=== PATIENT | male | born 1975 | race African-American/Black ===

== ENCOUNTER 2018-12-03 07:53 | Emergency (ER) | payer OTHER, SELFPAY ==
[2018-12-03] VITALS (8 sets, daily range): BP systolic 114–148; BP diastolic 73–90; PULSE 65–87; RESP 13–24; TEMP 37.3; O2SAT 94–99; BMI 28.4
--- NOTE | 2018-12-03 08:02 | DI.RAD.S_ITS ---
PROCEDURE: XR CHEST 2V INDICATIONS: Right arm pain, vision change TECHNIQUE: 2 views of the chest were acquired. COMPARISON: None. FINDINGS: Surgical changes and devices: None. Lungs and pleura: No pleural effusions or pneumothorax. Lungs are clear. Mediastinum: Mediastinal contours are normal. Heart size is normal. Bones and chest wall: No suspicious bony abnormalities. Soft tissues appear unremarkable. IMPRESSION: Chest without acute cardiopulmonary abnormalities. Dictated by: Neil Velez M.D. on 12/03/2018 at 9:17 Approved by: Neil Velez M.D. on 12/03/2018 at 9:18
--- NOTE | 2018-12-03 08:02 | DI.CT.S_ITS ---
PROCEDURE: CT HEAD/BRAIN WO CON INDICATIONS: vision change, brief TECHNIQUE: Noncontrast 4.5 mm thick angled axial sections acquired from the foramen magnum to the vertex, with coronal and sagittal reformats. For radiation dose reduction, the following was used: automated exposure control, adjustment of mA and/or kV according to patient size. COMPARISON: None. FINDINGS: Image quality: Excellent. CSF spaces: Basal cisterns are patent. No extra-axial fluid collections. Ventricles are normal in size and shape. Brain: No midline shift. No intracranial masses or hemorrhage. Acevedo-white matter interface is normal. Skull and face: Calvarium and visualized facial bones are intact, without suspicious lesions. Sinuses: Visualized sinuses and mastoids are clear. IMPRESSION: No acute intracranial process. Findings were personally telephoned to Dr. Diaz in the emergency department 12/03/18 0830 hours Dictated by: George Fernandes M.D. on 12/03/2018 at 8:28 Approved by: George Fernandes M.D. on 12/03/2018 at 8:31
--- NOTE | 2018-12-03 08:19 | ED.NEUROSD ---
HPI - Neuro Symptoms/Deficit General Chief Complaint: Neuro Symptoms/Deficit Stated Complaint: Rt arm pain/Vision loss Time Seen by Provider: 12/03/18 07:55 Source: patient Mode of arrival: ambulatory Limitations: no limitations History of Present Illness HPI Narrative: 43M nonsmoker, with history of bipolar presents by EMS for evaluation of a brief episode of left eye vision change this morning in the absence of pain or injury as well as few days of episodes of right arm pain. He denies any injury or overuse of his right upper extremity. He denies numbness, tingling or weakness. He denies history of the same. She denies chest pain or shortness of breath. He denies any current symptoms. He called the nursing hotline and was instructed to present to the emergency department. Onset (ago): hour(s) History of same: No Severity: mild Relieving factors: none Exacerbating factors: none Context: sudden onset On Anticoagulants: No Associated symptoms: denies other symptoms Treatments Prior to Arrival: none Related Data Home Medications Medication Instructions Recorded Confirmed Vitamin D3 1 cap PO DAILY 12/03/18 12/03/18 amlodipine 10 mg PO DAILY 12/03/18 12/03/18 divalproex 1,000 mg PO QPM 12/03/18 12/03/18 fluticasone 1 spray INTRANASAL DAILY PRN 12/03/18 12/03/18 fluticasone-salmeterol [Advair 1 inh INHALATION Q12H 12/03/18 12/03/18 Diskus] Allergies Allergy/AdvReac Type Severity Reaction Status Date / Time No Known Drug Allergies Allergy Verified 12/03/18 08:40 Review of Systems Constitutional Denies chills, Denies fever(s), Denies lethargy and Denies weakness Eyes Denies change in vision, Denies eye discharge, Denies irritation and Reports loss of vision ENT Ears, Nose, Mouth, and Throat: Denies change in voice, Denies neck pain and Denies sore throat Cardiovascular Denies chest pain, Denies irregular heart rhythm, Denies lightheadedness, Denies palpitations, Denies dyspnea, Denies dyspnea on exertion and Denies orthopnea Respiratory Denies cough, Denies dyspnea, Denies dyspnea on exertion and Denies wheezing Gastrointestinal Gastrointestinal: Denies abdominal pain, Denies change in bowel habits, Denies diarrhea, Denies nausea and Denies vomiting Genitourinary Denies hematuria, Denies flank pain, Denies urinary incontinence and Denies urinary urgency Musculoskeletal Denies neck pain and Reports radiating pain into limb Integumentary/Breasts Denies pruritus, Denies erythema, Denies rash and Denies wounds Neurologic Denies confusion, Reports loss of vision and Denies weakness Psychiatric Denies anxiety, Denies confusion, Denies depression, Denies homicidal ideation and Denies suicidal ideation Endocrine Denies palpitations Hematologic/Lymphatic Denies easy bruising Allergic/Immunologic Denies wheezing PFSH Medical History Bipolar disorder (Acute) Social History Smoking Status: Never smoker Exam Narrative Exam Narrative: GENERAL: This is a well-nourished, well-developed patient, in mild distress. HEAD: Atraumatic. Normocephalic. No temporal or scalp tenderness. EYES: Pupils equal round and reactive. Extraocular motions intact. No scleral icterus. No injection or drainage. ENT: Nose without bleeding, purulent drainage or septal hematoma. Throat without erythema, tonsillar hypertrophy or exudate. Uvula midline. Airway patent. NECK: Trachea midline. No JVD or lymphadenopathy. Supple, nontender, no meningeal signs. CARDIOVASCULAR: Regular rate and rhythm without murmurs, gallops, or rubs. RESPIRATORY: Clear to auscultation. Breath sounds equal bilaterally. No wheezes, rales, or rhonchi. GASTROINTESTINAL: Abdomen soft, non-tender, nondistended. No hepato-splenomegaly, or palpable masses. No guarding. EXTREMITIES: No clubbing, cyanosis, or edema. No joint tenderness, effusion, or edema noted. BACK: Nontender without deformity or crepitance. No flank tenderness. NEURO: AOx3. SKIN: No rash or erythema. NIH Stroke Scale 1a. LOC: Patient is alert and keenly responsive (0) 1b. LOC Questions: Patient answers both LOC questions accurately (0) 1c. LOC Commands: Patient performs both tasks correctly (0) 2. Best Gaze: Normal (0) 3. Visual: No visual loss (0) 4. Facial palsy: Normal symmetrical movements (0) 5. Motor arm: No drift (0) 6. Motor leg: No drift (0) 7. Limb ataxia: Absent (0) 8. Sensory: Normal (0) 9. Best language: No aphasia; normal (0) 10. Dysarthria: Normal (0) 11. Extinction and inattention: No abnormality (0) NIHSS: 0 Initial Vital Signs Initial Vital Signs: Vital Signs Temperature 99.1 F 12/03/18 07:21 Pulse Rate 71 12/03/18 07:21 Respiratory Rate 16 12/03/18 07:21 Blood Pressure 132/90 12/03/18 07:21 Pulse Oximetry 97 12/03/18 07:21 Course Orders Ordered: ED Orders 12/03/18 11:25 Basic Metabolic Panel Stat Complete Blood Count AUTO DIFF Stat Partial Thromboplastin Time Stat Prothrombin Time INR Stat Troponin I Stat Discontinued Medications Sodium Chloride (Normal Saline 0.9%) 1,000 mls @ 150 mls/hr IV CONT AYAN Last Infusion: 12/03/18 13:13 Dose: 0 mls/hr Admin: 12/03/18 08:40 Dose: 150 mls/hr Vital Signs - 8 hr 12/03/18 11:34 12/03/18 12:03 12/03/18 12:30 Pulse Rate 72 80 65 Respiratory Rate 18 24 13 Blood Pressure Blood Pressure [Right Arm] 122/86 114/79 119/89 Pulse Oximetry 96 98 98 12/03/18 13:13 Pulse Rate 77 Respiratory Rate 15 Blood Pressure 114/73 Blood Pressure [Right Arm] Pulse Oximetry 97 MDM - Neuro Symptoms/Deficit Medical Records Attestation: I reviewed the patient's medical records. Lab Data Attestation: I reviewed the patient's lab results. Result diagrams: 12/03/18 11:25 12/03/18 11:25 Lab Results 12/03/18 12/03/18 12/03/18 Range/Units 11:25 11:25 11:25 WBC 6.3 (4.5-11.0) X10^3/uL RBC 5.43 (4.5-5.9) X10^6/uL Hgb 13.0 L (13.5-17.5) g/dL Hct 41.2 (41-53) % MCV 75.9 L (80-100) fL MCH 24.0 L (26-34) PG MCHC 31.6 (30-36) % RDW 14.7 (11.6-14.8) % Plt Count 201 (150-400) X10^3/uL Neut % (Auto) 40.6 L (50-75) % Lymph % (Auto) 50.1 H (25-40) % Bonner % (Auto) 8.2 (3-14) % Eos % (Auto) 0.9 L (2-4) % Baso % (Auto) 0.2 (0-2) % Neut # (Auto) 2600 (0429-8985) /uL Lymph # (Auto) 3100 (5659-9712) /uL Bonner # (Auto) 500 (0-900) /uL Eos # (Auto) 100 (0-450) /uL Baso # (Auto) 0 (0-100) /uL PT 11.4 (10.1-12.7) SECONDS INR 1.0 (0.9-1.3) APTT 29 (26.4-36.2) SECONDS Sodium 141 (137-145) mmol/L Potassium 4.1 (3.4-5.1) mmol/L Chloride 107 (98-107) mmol/L Carbon Dioxide 25 (22-32) mmol/L BUN 15 (9-20) mg/dL Creatinine 1.00 (0.66-1.25) mg/dL Estimated GFR > 60.0 (>60) mL/min BUN/Creatinine Ratio 15.0 (6-22) Glucose 81 (70-100) mg/dL Calcium 9.0 (8.4-10.2) mg/dL Troponin I < 0.012 (0.01-0.034) ng/mL Point of Care Testing Glucose POC 112 Urine Dip Bedside Urine Glucose Negative Bedside Urine Bilirubin - Negative Bedside Urine Ketone - Negative Urine Specific [place] 1.030 Bedside Urine Occult Blood - Negative Bedside Urine pH 5.0 Bedside Urine Protein - Negative Bedside Urine Urobilinogen - Negative Bedside Urine Nitrite - Negative Bedside Urine Leukocytes - Negative Esterase Imaging Data MRI - head: Radiologist's impression: Patient: Reji Hraris MR#: [id number] : 1975 Acct:[id number] Age/Sex: 43 / M Date of Service: 12/03/18 Loc: ED Accession Number: [id number] Procedure: MR stroke Ordering Provider: Quinton Diaz D.O. PROCEDURE: MR STROKE Pre- and post-contrast brain MRI, non-contrast brain MR angiogram, pre- and postcontrast neck MR angiogram INDICATIONS: vision change, arm trouble TECHNIQUE: Brain: Noncontrast axial T1 spin echo, axial T2 fast spin echo, sagittal and axial FLAIR, coronal T2 fast spin echo, axial gradient echo, axial diffusion and ADC through the brain. After the administration of contrast, axial 3D VIBE of the cranial vasculature and brain. Brain MRA: Non-contrast 3-D time of flight MR angiogram, with multiple zuikmvz-eihtdrsyb-klilkhqndy (MIP) reformats performed. Neck MRA: Axial and sagittal TruFISP through the neck. Coronal dynamic MR angiogram during administration of contrast in the arterial and venous phases, with 3-dimenstional bmkrugc-jioflwjsb-sosqjpbbpy (MIP) reformats constructed from subtraction images. COMPARISON: None. FINDINGS: Image quality: Excellent. BRAIN: CSF spaces: Ventricles are normal in size and shape. Basal cisterns are patent. No extra-axial fluid collections. Brain: No intracranial bleeds or mass effects. Acevedo-white matter interface is normal. Diffusion weighted images show no acute ischemic insults. Brainstem appears normal. Normal intravascular flow voids are present. No Chiari weighted abnormalities identified in the brain parenchyma. No abnormal intracranial enhancement. Skull and face: Calvarial marrow signal is normal. Orbits appear normal. Sinuses: Sinuses and mastoids are clear. BRAIN MR ANGIOGRAM: Anterior circulation: Intracranial internal carotid arteries are normal in size and enhancement. The flow within the paired anterior cerebral arteries is normal and symmetric. The flow within the middle cerebral arteries is normal and symmetric. The anterior communicating artery is seen. No stenoses, occlusions, or aneurysms. Posterior circulation: The visualized portions of the vertebral arteries demonstrate normal caliber. Left vertebral artery terminates in a left posterior inferior cerebellar artery. Normal flow to the basilar artery. 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 The flow within the posterior cerebral arteries is normal and symmetric. No stenoses, occlusions, or aneurysms. NECK MR ANGIOGRAM: Carotids: Great vessels demonstrate a conventional anatomy as they arise from the aortic arch. The origins of the common carotid arteries appear patent. The calibers and courses of both common carotid arteries are normal. The bifurcation regions appear normal bilaterally. The internal carotid arteries demonstrate normal course and caliber. Posterior circulation: The origins of the vertebral arteries appear patent. More superior portions of both vertebral arteries demonstrate normal course and caliber, and join to form a normal appearing basilar artery. Miscellaneous: Subclavian arteries appear patent. Pre-contrast images through the neck show no soft tissue abnormalities. IMPRESSION: BRAIN MRI: 1. No acute intracranial disease process. 2. No areas of acute or chronic infarction. 3. No abnormal intracranial mass or suspicious postcontrast enhancement BRAIN MR ANGIOGRAM: Negative examination. NECK MR ANGIOGRAM: Negative examination. Dictated by: Fanny Morin MD, PhD on 12/03/2018 at 11:12 Approved by: Fanny Morin MD, PhD on 12/03/2018 at 11:20 CT scan - head: Radiologist's impression: Patient: Reji Harris MR#: [id number] : 1975 Acct:[id number] Age/Sex: 43 / M Date of Service: 12/03/18 Loc: ED Accession Number: [id number] Procedure: CT head/brain wo con Ordering Provider: Quinton Diaz D.O. PROCEDURE: CT HEAD/BRAIN WO CON INDICATIONS: vision change, brief TECHNIQUE: Noncontrast 4.5 mm thick angled axial sections acquired from the foramen magnum to the vertex, with coronal and sagittal reformats. For radiation dose reduction, the following was used: automated exposure control, adjustment of mA and/or kV according to patient size. COMPARISON: None. FINDINGS: Image quality: Excellent. CSF spaces: Basal cisterns are patent. No extra-axial fluid collections. Ventricles are normal in size and shape. Brain: No midline shift. No intracranial masses or hemorrhage. Acevedo-white matter interface is normal. Skull and face: Calvarium and visualized facial bones are intact, without suspicious lesions. Sinuses: Visualized sinuses and mastoids are clear. IMPRESSION: No acute intracranial process. Findings were personally telephoned to Dr. Diaz in the emergency department 12/03/18 0830 hours Dictated by: George Fernandes M.D. on 12/03/2018 at 8:28 Approved by: George Fernandes M.D. on 12/03/2018 at 8:31 Chest x-ray: Attestation: I personally reviewed and interpreted this imaging study as follows: My impression: NAP Radiologist's impression: [address] [address] XRay Report Signed Patient: Reji Harris MR#: [id number] : 1975 Acct:[id number] Age/Sex: 43 / M Date of Service: 12/03/18 Loc: ED Accession Number: [id number] Procedure: XR chest 2V Ordering Provider: Quinton Diaz D.O. PROCEDURE: XR CHEST 2V INDICATIONS: Right arm pain, vision change TECHNIQUE: 2 views of the chest were acquired. COMPARISON: None. FINDINGS: Surgical changes and devices: None. Lungs and pleura: No pleural effusions or pneumothorax. Lungs are clear. Mediastinum: Mediastinal contours are normal. Heart size is normal. Bones and chest wall: No suspicious bony abnormalities. Soft tissues appear unremarkable. IMPRESSION: Chest without acute cardiopulmonary abnormalities. Dictated by: Neil Velez M.D. on 12/03/2018 at 9:17 Approved by: Neil Velez M.D. on 12/03/2018 at 9:18 Discharge Plan Departure Patient Disposition: Home Clinical Impression: Vision abnormalities Discharge Date/Time: 12/03/18 13:14 Interventions: ED Discharge Assessment Last Done: 12/03/18 13:13 Instructions: DI for Visual Field Disturbances Activity Restrictions/Additional Instructions: *You have been diagnosed with [ vision change resolved, arm pain resolved ] *What to do: *Please continue to take medications as directed. Please begin taking Aspirin 81mg daily *Follow up with your primary care provider in 2-3 days, call for an appointment. Let them know you were seen in the Emergency Department and that we ask that you be seen in follow up *Return to ER if you should have any new, worsening or concerning symptoms Prescriptions: No Action amlodipine 10 mg tablet 10 mg PO DAILY RF: 0 divalproex 500 mg tablet extended release 24 hr 1,000 mg PO QPM RF: 0 fluticasone 50 mcg/actuation spray,suspension 1 spray Intranasal DAILY PRN (Reason: Allergy Symptoms) RF: 0 fluticasone-salmeterol [Advair Diskus] 500-50 mcg/dose Blister With Device 1 inh INHALATION Q12H RF: 0 Vitamin D3 1 cap PO DAILY RF: 0
--- NOTE | 2018-12-03 08:24 | ED_ITS ---
HPI - Neuro Symptoms/Deficit General Chief Complaint: Neuro Symptoms/Deficit Stated Complaint: Rt arm pain/Vision loss Time Seen by Provider: 12/03/18 07:55 Source: patient Mode of arrival: ambulatory Limitations: no limitations History of Present Illness HPI Narrative: 43M nonsmoker, with history of bipolar presents by EMS for evaluation of a brief episode of left eye vision change this morning in the absence of pain or injury as well as few days of episodes of right arm pain. He denies any injury or overuse of his right upper extremity. He denies numbness, tingling or weakness. He denies history of the same. She denies chest pain or shortness of breath. He denies any current symptoms. He called the nursing hotline and was instructed to present to the emergency department. Onset (ago): hour(s) History of same: No Severity: mild Relieving factors: none Exacerbating factors: none Context: sudden onset On Anticoagulants: No Associated symptoms: denies other symptoms Treatments Prior to Arrival: none Related Data Home Medications Medication Instructions Recorded Confirmed Vitamin D3 1 cap PO DAILY 12/03/18 12/03/18 amlodipine 10 mg PO DAILY 12/03/18 12/03/18 divalproex 1,000 mg PO QPM 12/03/18 12/03/18 fluticasone 1 spray INTRANASAL DAILY PRN 12/03/18 12/03/18 fluticasone-salmeterol [Advair 1 inh INHALATION Q12H 12/03/18 12/03/18 Diskus] Allergies Allergy/AdvReac Type Severity Reaction Status Date / Time No Known Drug Allergies Allergy Verified 12/03/18 08:40 Review of Systems Constitutional Denies chills, Denies fever(s), Denies lethargy and Denies weakness Eyes Denies change in vision, Denies eye discharge, Denies irritation and Reports loss of vision ENT Ears, Nose, Mouth, and Throat: Denies change in voice, Denies neck pain and Denies sore throat Cardiovascular Denies chest pain, Denies irregular heart rhythm, Denies lightheadedness, Denies palpitations, Denies dyspnea, Denies dyspnea on exertion and Denies orthopnea Respiratory Denies cough, Denies dyspnea, Denies dyspnea on exertion and Denies wheezing Gastrointestinal Gastrointestinal: Denies abdominal pain, Denies change in bowel habits, Denies diarrhea, Denies nausea and Denies vomiting Genitourinary Denies hematuria, Denies flank pain, Denies urinary incontinence and Denies urinary urgency Musculoskeletal Denies neck pain and Reports radiating pain into limb Integumentary/Breasts Denies pruritus, Denies erythema, Denies rash and Denies wounds Neurologic Denies confusion, Reports loss of vision and Denies weakness Psychiatric Denies anxiety, Denies confusion, Denies depression, Denies homicidal ideation and Denies suicidal ideation Endocrine Denies palpitations Hematologic/Lymphatic Denies easy bruising Allergic/Immunologic Denies wheezing PFSH Medical History Bipolar disorder (Acute) Social History Smoking Status: Never smoker Exam Narrative Exam Narrative: GENERAL: This is a well-nourished, well-developed patient, in mild distress. HEAD: Atraumatic. Normocephalic. No temporal or scalp tenderness. EYES: Pupils equal round and reactive. Extraocular motions intact. No scleral icterus. No injection or drainage. ENT: Nose without bleeding, purulent drainage or septal hematoma. Throat without erythema, tonsillar hypertrophy or exudate. Uvula midline. Airway patent. NECK: Trachea midline. No JVD or lymphadenopathy. Supple, nontender, no meningeal signs. CARDIOVASCULAR: Regular rate and rhythm without murmurs, gallops, or rubs. RESPIRATORY: Clear to auscultation. Breath sounds equal bilaterally. No wheezes , rales, or rhonchi. GASTROINTESTINAL: Abdomen soft, non-tender, nondistended. No hepato-splenomegaly , or palpable masses. No guarding. EXTREMITIES: No clubbing, cyanosis, or edema. No joint tenderness, effusion, or edema noted. BACK: Nontender without deformity or crepitance. No flank tenderness. NEURO: AOx3. SKIN: No rash or erythema. NIH Stroke Scale 1a. LOC: Patient is alert and keenly responsive (0) 1b. LOC Questions: Patient answers both LOC questions accurately (0) 1c. LOC Commands: Patient performs both tasks correctly (0) 2. Best Gaze: Normal (0) 3. Visual: No visual loss (0) 4. Facial palsy: Normal symmetrical movements (0) 5. Motor arm: No drift (0) 6. Motor leg: No drift (0) 7. Limb ataxia: Absent (0) 8. Sensory: Normal (0) 9. Best language: No aphasia; normal (0) 10. Dysarthria: Normal (0) 11. Extinction and inattention: No abnormality (0) NIHSS: 0 Initial Vital Signs Initial Vital Signs: Vital Signs Temperature 99.1 F 12/03/18 07:21 Pulse Rate 71 12/03/18 07:21 Respiratory Rate 16 12/03/18 07:21 Blood Pressure 132/90 12/03/18 07:21 Pulse Oximetry 97 12/03/18 07:21 Course Orders Ordered: ED Orders 12/03/18 11:25 Basic Metabolic Panel Stat Complete Blood Count AUTO DIFF Stat Partial Thromboplastin Time Stat Prothrombin Time INR Stat Troponin I Stat Discontinued Medications Sodium Chloride (Normal Saline 0.9%) 1,000 mls @ 150 mls/hr IV CONT AYAN Last Infusion: 12/03/18 13:13 Dose: 0 mls/hr Admin: 12/03/18 08:40 Dose: 150 mls/hr Vital Signs - 8 hr 12/03/18 11:34 12/03/18 12:03 12/03/18 12:30 Pulse Rate 72 80 65 Respiratory Rate 18 24 13 Blood Pressure Blood Pressure [Right Arm] 122/86 114/79 119/89 Pulse Oximetry 96 98 98 12/03/18 13:13 Pulse Rate 77 Respiratory Rate 15 Blood Pressure 114/73 Blood Pressure [Right Arm] Pulse Oximetry 97 MDM - Neuro Symptoms/Deficit Medical Records Attestation: I reviewed the patient's medical records. Lab Data Attestation: I reviewed the patient's lab results. Result diagrams: 12/03/18 11:25 12/03/18 11:25 Lab Results 12/03/18 12/03/18 12/03/18 Range/Units 11:25 11:25 11:25 WBC 6.3 (4.5-11.0) X10^3/uL RBC 5.43 (4.5-5.9) X10^6/uL Hgb 13.0 L (13.5-17.5) g/dL Hct 41.2 (41-53) % MCV 75.9 L (80-100) fL MCH 24.0 L (26-34) PG MCHC 31.6 (30-36) % RDW 14.7 (11.6-14.8) % Plt Count 201 (150-400) X10^3/uL Neut % (Auto) 40.6 L (50-75) % Lymph % (Auto) 50.1 H (25-40) % [place] % (Auto) 8.2 (3-14) % Eos % (Auto) 0.9 L (2-4) % Baso % (Auto) 0.2 (0-2) % Neut # (Auto) 2600 (7764-6537) /uL Lymph # (Auto) 3100 (3029-4223) /uL [place] # (Auto) 500 (0-900) /uL Eos # (Auto) 100 (0-450) /uL Baso # (Auto) 0 (0-100) /uL PT 11.4 (10.1-12.7) SECONDS INR 1.0 (0.9-1.3) APTT 29 (26.4-36.2) SECONDS Sodium 141 (137-145) mmol/L Potassium 4.1 (3.4-5.1) mmol/L Chloride 107 (98-107) mmol/L Carbon Dioxide 25 (22-32) mmol/L BUN 15 (9-20) mg/dL Creatinine 1.00 (0.66-1.25) mg/dL Estimated GFR > 60.0 (>60) mL/min BUN/Creatinine Ratio 15.0 (6-22) Glucose 81 (70-100) mg/dL Calcium 9.0 (8.4-10.2) mg/dL Troponin I < 0.012 (0.01-0.034) ng/mL Point of Care Testing Glucose POC 112 Urine Dip Bedside Urine Glucose Negative Bedside Urine Bilirubin - Negative Bedside Urine Ketone - Negative Urine Specific [place] 1.030 Bedside Urine Occult Blood - Negative Bedside Urine pH 5.0 Bedside Urine Protein - Negative Bedside Urine Urobilinogen - Negative Bedside Urine Nitrite - Negative Bedside Urine Leukocytes - Negative Esterase Imaging Data MRI - head: Radiologist's impression: Patient: Reji Harris MR#: [id number] : 1975 Acct:[id number] Age/Sex: 43 / M Date of Service: 12/03/18 Loc: ED Accession Number: [id number] Procedure: MR stroke Ordering Provider: Quinton Diaz D.O. PROCEDURE: MR STROKE Pre- and post-contrast brain MRI, non-contrast brain MR angiogram, pre- and postcontrast neck MR angiogram INDICATIONS: vision change, arm trouble TECHNIQUE: Brain: Noncontrast axial T1 spin echo, axial T2 fast spin echo, sagittal and axial FLAIR, coronal T2 fast spin echo, axial gradient echo, axial diffusion and ADC through the brain. After the administration of contrast, axial 3D VIBE of the cranial vasculature and brain. Brain MRA: Non-contrast 3-D time of flight MR angiogram, with multiple bnfioqu-bkixrmnkz-mqbbhsphsx (MIP) reformats performed. Neck MRA: Axial and sagittal TruFISP through the neck. Coronal dynamic MR angiogram during administration of contrast in the arterial and venous phases, with 3- dimenstional dyqavzn-xlzunbtmf-gitczcniui (MIP) reformats constructed from subtraction images. COMPARISON: None. FINDINGS: Image quality: Excellent. BRAIN: CSF spaces: Ventricles are normal in size and shape. Basal cisterns are patent. No extra-axial fluid collections. Brain: No intracranial bleeds or mass effects. Acevedo-white matter interface is normal. Diffusion weighted images show no acute ischemic insults. Brainstem appears normal. Normal intravascular flow voids are present. No Chiari weighted abnormalities identified in the brain parenchyma. No abnormal intracranial enhancement. Skull and face: Calvarial marrow signal is normal. Orbits appear normal. Sinuses: Sinuses and mastoids are clear. BRAIN MR ANGIOGRAM: Anterior circulation: Intracranial internal carotid arteries are normal in size and enhancement. The flow within the paired anterior cerebral arteries is normal and symmetric. The flow within the middle cerebral arteries is normal and symmetric. The anterior communicating artery is seen. No stenoses, occlusions, or aneurysms. Posterior circulation: The visualized portions of the vertebral arteries demonstrate normal caliber. Left vertebral artery terminates in a left posterior inferior cerebellar artery. Normal flow to the basilar artery. 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 The flow within the posterior cerebral arteries is normal and symmetric. No stenoses, occlusions, or aneurysms. NECK MR ANGIOGRAM: Carotids: Great vessels demonstrate a conventional anatomy as they arise from the aortic arch. The origins of the common carotid arteries appear patent. The calibers and courses of both common carotid arteries are normal. The bifurcation regions appear normal bilaterally. The internal carotid arteries demonstrate normal course and caliber. Posterior circulation: The origins of the vertebral arteries appear patent. More superior portions of both vertebral arteries demonstrate normal course and caliber, and join to form a normal appearing basilar artery. Miscellaneous: Subclavian arteries appear patent. Pre-contrast images through the neck show no soft tissue abnormalities. IMPRESSION: BRAIN MRI: 1. No acute intracranial disease process. 2. No areas of acute or chronic infarction. 3. No abnormal intracranial mass or suspicious postcontrast enhancement BRAIN MR ANGIOGRAM: Negative examination. NECK MR ANGIOGRAM: Negative examination. Dictated by: Fanny Morin MD, PhD on 12/03/2018 at 11:12 Approved by: Fanny Morin MD, PhD on 12/03/2018 at 11:20 CT scan - head: Radiologist's impression: Patient: Reji Harris MR#: [id number] : 1975 Acct:[id number] Age/Sex: 43 / M Date of Service: 12/03/18 Loc: ED Accession Number: [id number] Procedure: CT head/brain wo con Ordering Provider: Quinton Diaz D.O. PROCEDURE: CT HEAD/BRAIN WO CON INDICATIONS: vision change, brief TECHNIQUE: Noncontrast 4.5 mm thick angled axial sections acquired from the foramen magnum to the vertex, with coronal and sagittal reformats. For radiation dose reduction, the following was used: automated exposure control, adjustment of mA and/or kV according to patient size. COMPARISON: None. FINDINGS: Image quality: Excellent. CSF spaces: Basal cisterns are patent. No extra-axial fluid collections. Ventricles are normal in size and shape. Brain: No midline shift. No intracranial masses or hemorrhage. Acevedo-white matter interface is normal. Skull and face: Calvarium and visualized facial bones are intact, without suspicious lesions. Sinuses: Visualized sinuses and mastoids are clear. IMPRESSION: No acute intracranial process. Findings were personally telephoned to Dr. Diaz in the emergency department 12/03/18 0830 hours Dictated by: George Fernandes M.D. on 12/03/2018 at 8:28 Approved by: George Fernandes M.D. on 12/03/2018 at 8:31 Chest x-ray: Attestation: I personally reviewed and interpreted this imaging study as follows: My impression: NAP Radiologist's impression: [address] [address] XRay Report Signed Patient: Reji Harris MR#: [id number] : 1975 Acct:[id number] Age/Sex: 43 / M Date of Service: 12/03/18 Loc: ED Accession Number: [id number] Procedure: XR chest 2V Ordering Provider: Quinton Diaz D.O. PROCEDURE: XR CHEST 2V INDICATIONS: Right arm pain, vision change TECHNIQUE: 2 views of the chest were acquired. COMPARISON: None. FINDINGS: Surgical changes and devices: None. Lungs and pleura: No pleural effusions or pneumothorax. Lungs are clear. Mediastinum: Mediastinal contours are normal. Heart size is normal. Bones and chest wall: No suspicious bony abnormalities. Soft tissues appear unremarkable. IMPRESSION: Chest without acute cardiopulmonary abnormalities. Dictated by: Niel Velez M.D. on 12/03/2018 at 9:17 Approved by: Neil Velez M.D. on 12/03/2018 at 9:18 Discharge Plan Departure Patient Disposition: Home Clinical Impression: Vision abnormalities Discharge Date/Time: 12/03/18 13:14 Interventions: ED Discharge Assessment Last Done: 12/03/18 13:13 Instructions: DI for Visual Field Disturbances Activity Restrictions/Additional Instructions: *You have been diagnosed with [ vision change resolved, arm pain resolved ] *What to do: *Please continue to take medications as directed. Please begin taking Aspirin 81mg daily *Follow up with your primary care provider in 2-3 days, call for an appointment. Let them know you were seen in the Emergency Department and that we ask that you be seen in follow up *Return to ER if you should have any new, worsening or concerning symptoms Prescriptions: No Action amlodipine 10 mg tablet 10 mg PO DAILY RF: 0 divalproex 500 mg tablet extended release 24 hr 1,000 mg PO QPM RF: 0 fluticasone 50 mcg/actuation spray,suspension 1 spray Intranasal DAILY PRN (Reason: Allergy Symptoms) RF: 0 fluticasone-salmeterol [Advair Diskus] 500-50 mcg/dose Blister With Device 1 inh INHALATION Q12H RF: 0 Vitamin D3 1 cap PO DAILY RF: 0
--- NOTE | 2018-12-03 08:34 | DI.MRI.S_ITS ---
PROCEDURE: MR STROKE Pre- and post-contrast brain MRI, non-contrast brain MR angiogram, pre- and postcontrast neck MR angiogram INDICATIONS: vision change, arm trouble TECHNIQUE: Brain: Noncontrast axial T1 spin echo, axial T2 fast spin echo, sagittal and axial FLAIR, coronal T2 fast spin echo, axial gradient echo, axial diffusion and ADC through the brain. After the administration of contrast, axial 3D VIBE of the cranial vasculature and brain. Brain MRA: Non-contrast 3-D time of flight MR angiogram, with multiple ovfnhcw-kdyvksvjo-mvrdnprnrr (MIP) reformats performed. Neck MRA: Axial and sagittal TruFISP through the neck. Coronal dynamic MR angiogram during administration of contrast in the arterial and venous phases, with 3-dimenstional meyhmep-dvrnyahoh-deztrurryf (MIP) reformats constructed from subtraction images. COMPARISON: None. FINDINGS: Image quality: Excellent. BRAIN: CSF spaces: Ventricles are normal in size and shape. Basal cisterns are patent. No extra-axial fluid collections. Brain: No intracranial bleeds or mass effects. Acevedo-white matter interface is normal. Diffusion weighted images show no acute ischemic insults. Brainstem appears normal. Normal intravascular flow voids are present. No Chiari weighted abnormalities identified in the brain parenchyma. No abnormal intracranial enhancement. Skull and face: Calvarial marrow signal is normal. Orbits appear normal. Sinuses: Sinuses and mastoids are clear. BRAIN MR ANGIOGRAM: Anterior circulation: Intracranial internal carotid arteries are normal in size and enhancement. The flow within the paired anterior cerebral arteries is normal and symmetric. The flow within the middle cerebral arteries is normal and symmetric. The anterior communicating artery is seen. No stenoses, occlusions, or aneurysms. Posterior circulation: The visualized portions of the vertebral arteries demonstrate normal caliber. Left vertebral artery terminates in a left posterior inferior cerebellar artery. Normal flow to the basilar artery. 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 The flow within the posterior cerebral arteries is normal and symmetric. No stenoses, occlusions, or aneurysms. NECK MR ANGIOGRAM: Carotids: Great vessels demonstrate a conventional anatomy as they arise from the aortic arch. The origins of the common carotid arteries appear patent. The calibers and courses of both common carotid arteries are normal. The bifurcation regions appear normal bilaterally. The internal carotid arteries demonstrate normal course and caliber. Posterior circulation: The origins of the vertebral arteries appear patent. More superior portions of both vertebral arteries demonstrate normal course and caliber, and join to form a normal appearing basilar artery. Miscellaneous: Subclavian arteries appear patent. Pre-contrast images through the neck show no soft tissue abnormalities. IMPRESSION: BRAIN MRI: 1. No acute intracranial disease process. 2. No areas of acute or chronic infarction. 3. No abnormal intracranial mass or suspicious postcontrast enhancement BRAIN MR ANGIOGRAM: Negative examination. NECK MR ANGIOGRAM: Negative examination. Dictated by: Fanny Morin MD, PhD on 12/03/2018 at 11:12 Approved by: Fanny Morin MD, PhD on 12/03/2018 at 11:20
[2018-12-03] MEDS: SODIUM CHLORIDE 0.9% 1,000 ML 150 ML IV (08:40)
[2018-12-03 11:34] LABS: Add Manual Diff / Slide Review NO; Basophils Absolute Auto 0 /uL (0-100); Basophils Percent Auto 0.2 % (0-2); Eosinophils Absolute Auto 100 /uL (0-450); Eosinophils Percent Auto 0.9 % (2-4); Hematocrit 41.2 % (41-53); Lymphocytes Absolute Auto 3100 /uL (1100-4500); Lymphocytes Percent Auto 50.1 % (25-40); Mean Corpuscular HGB Conc 31.6 % (30-36); Mean Corpuscular Volume 75.9 fL (80-100); Monocytes Absolute Auto 500 /uL (0-900); Monocytes Percent Auto 8.2 % (3-14); Neutrophils Absolute Auto 2600 /uL (1500-7000); Neutrophils Percent Auto 40.6 % (50-75); Platelet Count 201 X10^3/uL (150-400); Red Blood Cell Count 5.43 X10^6/uL (4.5-5.9); Red Cell Distribution Width 14.7 % (11.6-14.8); White Blood Cell Count 6.3 X10^3/uL (4.5-11.0)
[2018-12-03 11:43] LABS: Prothrombin Time 11.4 SECONDS (10.1-12.7)
[2018-12-03 11:45] LABS: PTT Partial Thromboplastin Tim 29 SECONDS (26.4-36.2)
[2018-12-03 11:58] LABS: Blood Urea Nitrogen 15 mg/dL (9-20); Carbon Dioxide 25 mmol/L (22-32); Chloride 107 mmol/L (98-107); Estimated Glomerular Filt Rate > 60.0 mL/min (>60); Glucose 81 mg/dL (70-100); HEMOLYSIS < 15 (0-50); Potassium 4.1 mmol/L (3.4-5.1); Sodium 141 mmol/L (137-145)
[2018-12-03 12:16] LABS: Troponin I < 0.012 ng/mL (0.01-0.034)
== END 2018-12-03 13:14 | disposition home or self-care (01) ==
PROVIDERS: Emergency Provider Emergency Medicine
DX: H53.9 Unspecified visual disturbance (principal)
CPT/HCPCS: 70450; 70553; 71046; 80048; 81003; 82962; 84484; 85025; 85610; 85730; 93005; 93010; 96360; 96361; 99284; 99285; A9579